=== PATIENT | male | born 1940 | race Caucasian/White ===

== ENCOUNTER 2018-10-20 19:05 | Inpatient (IN) | payer MEDICARE | END 2018-10-27 16:15 | LOC: SUR 3N 10-25 14:42 → CICU 2S 19:05 | DX: K29.70 Gastritis, unspecified, without bleeding (principal); J18.9 Pneumonia, unspecified organism; E43 Unspecified severe protein-calorie malnutrition; R57.9 Shock, unspecified; K92.1 Melena; K20.9 Esophagitis, unspecified ==